=== PATIENT | male | born 1965 | race Caucasian/White ===

== ENCOUNTER 2021-03-17 13:41 | Emergency (ER) | payer OTHER ==
[~2021-03-17] VITALS: Ht 172.7 cm; Wt 3.6 kg
[~2021-03-17 13:41] MED LIST: OMEP20ER PO
== END 2021-03-17 16:32 | disposition home or self-care (01) ==
LOC: ER 13:41
DX: H53.8 Other visual disturbances (principal)
CPT/HCPCS: 70450; 99284-25